=== PATIENT | male | born 1965 | race Two or more races ===

== ENCOUNTER 2023-03-20 21:04 | Inpatient (IN) | payer MEDICAID, OTHER ==
[~2023-03-20] VITALS: Ht 177.8 cm; Wt 86.2 kg
[2023-03-20] MEDS ORDERED: QUET200T PO (21:14)
[2023-03-20] MEDS ORDERED: BUPR-345 PO (21:14)
[2023-03-20] MEDS ORDERED: VENL-193 PO (21:14)
[2023-03-20 22:16] LABS: BASOPHILS % (AUTO) 0.7 % (0.0-2.0); EOSINOPHILS % (AUTO) 0.1 % (1.0-6.0); HEMATOCRIT 38.7 % (41-53); HEMOGLOBIN 12.8 g/dL (13.5-17.5); LYMPHOCYTES # (AUTO) 1.4 K/uL (1.0-4.8); LYMPHOCYTES % (AUTO) 13.4 % (22.0-44.0); MEAN CORPUSCULAR HEMOGLOBIN 29.1 pg (26.0-34.0); MEAN CORPUSCULAR HGB CONC 33.1 G/dL (31.0-37.0); MEAN CORPUSCULAR VOLUME 88 fL (80-100); MONOCYTES # (AUTO) 1.3 K/uL (0.1-1.0); MONOCYTES % (AUTO) 12.2 % (2.0-9.0); NEUTROPHILS # (AUTO) 7.8 K/uL (1.8-7.7); NEUTROPHILS % (AUTO) 73.6 % (40.0-70.0); PLATELET COUNT (AUTO) 290 K/uL (150-450); RED CELL DISTRIBUTION WIDTH 15.5 % (11.5-14.5)
[2023-03-20 22:27] LABS: ANION GAP 12 mmol/L (8-16); CALCIUM, TOTAL 9.3 mg/dL (8.8-10.5); CARBON DIOXIDE 25 mmol/L (22-29); CHLORIDE 105 mmol/L (98-107); GLOMERULAR FILTR. RATE CALC > 60 mL/min (>60); GLUCOSE,RANDOM 100 mg/dL (70-110); POTASSIUM 4.5 mmol/L (3.5-5.1); SODIUM SERUM 142 mmol/L (136-145)
[2023-03-20 22:32] LABS: ALANINE AMINOTRANSFERASE 80 U/L (12-78); ALBUMIN 4.4 g/dL (3.4-5.0); ALKALINE PHOSPHATASE 85 U/L (46-116); ASPARTATE AMINOTRANSFERASE 293 U/L (15-37); BILIRUBIN,TOTAL 0.9 mg/dL (0.1-1.0); TOTAL PROTEIN, SERUM 7.7 g/dL (6.4-8.2)
[2023-03-21] MEDS ORDERED: HALOPERIDOL LACTATE 5 MG/ML VIAL IM ONE (03:00)
[2023-03-21] MEDS ORDERED: DiphenhydrAMINE HCL 50 MG/ML VIAL IM ONE (03:00)
[2023-03-21] MEDS ORDERED: LORazepam 2 MG/ML VIAL IM ONE (03:00)
[2023-03-21] MEDS ORDERED: OLANZapine 5 MG RAPDIS TABLET PO PRN (03:45)
[2023-03-21 11:50] LABS: COVID AG,FIA SOURCE NASAL SWAB
[2023-03-21 15:05] VITALS: BP 132/74; PULSE 100; RESP 18; TEMP 98.6; O2SAT 97
[2023-03-21 20:17] VITALS: RESP 20
[2023-03-21] MEDS ORDERED: MAG HYDROX/AL HYDROX/SIMETH ES 30 ML SUSPENSION UDCUP PO PRN (21:15)
[2023-03-21] MEDS ORDERED: OLANZapine 5 MG RAPDIS TABLET PO ONE (21:15)
[2023-03-21] MEDS ORDERED: LOPERAMIDE HCL 2 MG CAPSULE PO PRN (21:15)
[2023-03-21] MEDS ORDERED: HydrOXYzine PAMOATE 50 MG CAPSULE PO PRN (21:15)
[2023-03-21] MEDS ORDERED: TUBERCULIN, PURIFIED PROTEIN DERIVATIVE 5 TU/0.1 ML SYRINGE ID ONE (21:15)
[2023-03-21] MEDS ORDERED: PROMETHAZINE HCL 25 MG TABLET PO PRN (21:15)
[2023-03-21] MEDS ORDERED: GuaiFENesin/D-METHORPHAN [SUGAR-FREE] 200-20MG/10 ML SYRUP UDCUP PO PRN (21:15)
[2023-03-21] MEDS ORDERED: MAGNESIUM HYDROXIDE SUSPENSION 30 ML UDCUP PO PRN (21:15)
[2023-03-22] MEDS: OMEGA-3/DHA/EPA/FISH OIL 1,000 MG CAPSULE PO SCH (08:06)
[2023-03-22] MEDS: DIVALPROEX SODIUM 500 MG ER TABLET PO SCH ×3 (08:06→17:19)
[2023-03-22] MEDS: MULTIVITAMINS WITH MINERALS, THERAPEUTIC TABLET PO SCH (08:06)
[2023-03-22] MEDS: FOLIC ACID 1 MG TABLET PO SCH (08:07)
[2023-03-22] MEDS: THIAMINE 100 MG TABLET PO SCH ×2 (08:07→17:19)
[2023-03-22] MEDS: NALTREXONE HCL 50 MG TABLET PO SCH (08:07)
[2023-03-22 08:22] LABS: HEMOGLOBIN A1C 5.3 % (3.8-5.6)
[2023-03-22 08:35] VITALS: BP 118/57; PULSE 97; RESP 17; TEMP 98; O2SAT 99
[2023-03-22 08:43] LABS: CHOL/HDL RATIO 4.2 (4.2-7.3); FREE T4 (FREE THYROXINE) 1.11 ng/dL (0.76-1.46); THYROID STIMULATING HORMONE 4.47 uIU/mL (0.36-3.74)
[2023-03-22] MEDS ORDERED: QUEtiapine FUMARATE 100 MG TABLET PO PRN (16:00)
[2023-03-22] MEDS: QUEtiapine FUMARATE 200 MG TABLET PO SCH (20:09)
[2023-03-22] MEDS: LORazepam 2 MG TABLET PO PRN (20:09)
[2023-03-22] MEDS: BuPROPion HCL XL 150 MG ER TABLET PO SCH (20:09)
[2023-03-22] MEDS: MELATONIN 5 MG TABLET PO SCH (20:09)
[2023-03-22 20:55] VITALS: BP 118/69; PULSE 95; TEMP 97.6; O2SAT 95
[2023-03-22] MEDS ORDERED: OLANZapine 5 MG RAPDIS TABLET PO SCH (21:00)
[2023-03-23 08:06] LABS: HEPATITIS C AB (EIA) Non Reactive (Non Reactive)
[2023-03-23] MEDS: FOLIC ACID 1 MG TABLET PO SCH (08:06)
[2023-03-23] MEDS: THIAMINE 100 MG TABLET PO SCH ×2 (08:06→17:25)
[2023-03-23] MEDS: OMEGA-3/DHA/EPA/FISH OIL 1,000 MG CAPSULE PO SCH (08:07)
[2023-03-23] MEDS: NALTREXONE HCL 50 MG TABLET PO SCH (08:07)
[2023-03-23] MEDS: MULTIVITAMINS WITH MINERALS, THERAPEUTIC TABLET PO SCH (08:07)
[2023-03-23] MEDS: DIVALPROEX SODIUM 500 MG ER TABLET PO SCH ×3 (08:07→17:25)
[2023-03-23] MEDS: VENLAFAXINE HCL 150 MG ER CAPSULE PO SCH (08:07)
[2023-03-23 08:25] VITALS: BP 119/71; PULSE 101; RESP 17; TEMP 98.4; O2SAT 97
[2023-03-23] MEDS: LORazepam 2 MG TABLET PO PRN (19:21)
[2023-03-23] MEDS: QUEtiapine FUMARATE 200 MG TABLET PO SCH (20:16)
[2023-03-23] MEDS: BuPROPion HCL XL 150 MG ER TABLET PO SCH (20:16)
[2023-03-23] MEDS: MELATONIN 5 MG TABLET PO SCH (20:16)
[2023-03-23 20:44] VITALS: BP 120/68; PULSE 98; RESP 18; TEMP 98.2; O2SAT 97
[2023-03-24] MEDS: FOLIC ACID 1 MG TABLET PO SCH (08:00)
[2023-03-24] MEDS: DIVALPROEX SODIUM 500 MG ER TABLET PO SCH ×3 (08:00→17:19)
[2023-03-24] MEDS: MULTIVITAMINS WITH MINERALS, THERAPEUTIC TABLET PO SCH (08:00)
[2023-03-24] MEDS: OMEGA-3/DHA/EPA/FISH OIL 1,000 MG CAPSULE PO SCH (08:00)
[2023-03-24] MEDS: NALTREXONE HCL 50 MG TABLET PO SCH (08:01)
[2023-03-24] MEDS: THIAMINE 100 MG TABLET PO SCH ×2 (08:01→17:19)
[2023-03-24] MEDS: VENLAFAXINE HCL 150 MG ER CAPSULE PO SCH (08:01)
[2023-03-24 08:39] VITALS: BP 100/59; PULSE 89; RESP 17; TEMP 98; O2SAT 94
[2023-03-24] MEDS ORDERED: BUPR-317 PO (14:06)
[2023-03-24] MEDS ORDERED: VENL-68 PO (14:06)
[2023-03-24] MEDS: LORazepam 2 MG TABLET PO PRN ×2 (17:19→21:34)
[2023-03-24 20:44] VITALS: BP 109/74; PULSE 97; RESP 18; TEMP 98.2; O2SAT 97
[2023-03-24] MEDS: MELATONIN 5 MG TABLET PO SCH (21:00)
[2023-03-24] MEDS: QUEtiapine FUMARATE 300 MG TABLET PO SCH (21:01)
[2023-03-24] MEDS: ZOLPIDEM TARTRATE 10 MG TABLET PO PRN (21:01)
[2023-03-24] MEDS: BuPROPion HCL XL 150 MG ER TABLET PO SCH (21:01)
[2023-03-25 07:07] LABS: HEPATITIS C AB (EIA) Non Reactive (Non Reactive)
[2023-03-25 08:15] VITALS: BP 88/55; PULSE 78; RESP 18; TEMP 98.3; O2SAT 95
[2023-03-25] MEDS: MULTIVITAMINS WITH MINERALS, THERAPEUTIC TABLET PO SCH (08:38)
[2023-03-25] MEDS: NALTREXONE HCL 50 MG TABLET PO SCH (08:38)
[2023-03-25] MEDS: THIAMINE 100 MG TABLET PO SCH ×2 (08:38→16:02)
[2023-03-25] MEDS: VENLAFAXINE HCL 150 MG ER CAPSULE PO SCH (08:38)
[2023-03-25] MEDS: FOLIC ACID 1 MG TABLET PO SCH (08:38)
[2023-03-25] MEDS: DIVALPROEX SODIUM 500 MG ER TABLET PO SCH ×3 (08:38→16:02)
[2023-03-25] MEDS: OMEGA-3/DHA/EPA/FISH OIL 1,000 MG CAPSULE PO SCH (08:39)
[2023-03-25] MEDS: LACTULOSE 20 GM/30 ML SOLUTION UDCUP PO SCH ×2 (08:49→16:02)
[2023-03-25] MEDS: BuPROPion HCL XL 150 MG ER TABLET PO SCH (20:04)
[2023-03-25] MEDS: QUEtiapine FUMARATE 300 MG TABLET PO SCH (20:05)
[2023-03-25] MEDS: MELATONIN 5 MG TABLET PO SCH (20:06)
[2023-03-25 20:26] VITALS: BP 132/83; PULSE 97; RESP 17; TEMP 97.8; O2SAT 97
[2023-03-26] MEDS: DIVALPROEX SODIUM 500 MG ER TABLET PO SCH ×3 (08:13→16:10)
[2023-03-26] MEDS: THIAMINE 100 MG TABLET PO SCH ×2 (08:13→16:10)
[2023-03-26] MEDS: FOLIC ACID 1 MG TABLET PO SCH (08:13)
[2023-03-26] MEDS: NALTREXONE HCL 50 MG TABLET PO SCH (08:13)
[2023-03-26] MEDS: OMEGA-3/DHA/EPA/FISH OIL 1,000 MG CAPSULE PO SCH (08:13)
[2023-03-26] MEDS: VENLAFAXINE HCL 150 MG ER CAPSULE PO SCH (08:13)
[2023-03-26 08:14] VITALS: BP 111/71; PULSE 87; RESP 16; TEMP 98.6; O2SAT 98
[2023-03-26] MEDS: MULTIVITAMINS WITH MINERALS, THERAPEUTIC TABLET PO SCH (08:14)
[2023-03-26] MEDS: LACTULOSE 20 GM/30 ML SOLUTION UDCUP PO SCH ×2 (08:14→16:10)
[2023-03-26 11:43] VITALS: RESP 18
[2023-03-26] MEDS: ACETAMINOPHEN 325 MG TABLET PO PRN (11:43)
[2023-03-26 12:43] VITALS: RESP 18
[2023-03-26] MEDS: BuPROPion HCL XL 150 MG ER TABLET PO SCH (20:08)
[2023-03-26] MEDS: MELATONIN 5 MG TABLET PO SCH (20:08)
[2023-03-26] MEDS: QUEtiapine FUMARATE 300 MG TABLET PO SCH (20:08)
[2023-03-26 21:24] VITALS: BP 126/76; PULSE 86; RESP 18; TEMP 97.9
[2023-03-27] MEDS: NALTREXONE HCL 50 MG TABLET PO SCH (08:02)
[2023-03-27] MEDS: MULTIVITAMINS WITH MINERALS, THERAPEUTIC TABLET PO SCH (08:02)
[2023-03-27] MEDS: DIVALPROEX SODIUM 500 MG ER TABLET PO SCH ×3 (08:02→16:11)
[2023-03-27] MEDS: FOLIC ACID 1 MG TABLET PO SCH (08:02)
[2023-03-27] MEDS: OMEGA-3/DHA/EPA/FISH OIL 1,000 MG CAPSULE PO SCH (08:03)
[2023-03-27] MEDS: VENLAFAXINE HCL 150 MG ER CAPSULE PO SCH (08:03)
[2023-03-27] MEDS: THIAMINE 100 MG TABLET PO SCH ×2 (08:03→16:11)
[2023-03-27] MEDS: LACTULOSE 20 GM/30 ML SOLUTION UDCUP PO SCH ×2 (08:04→16:11)
[2023-03-27 08:19] VITALS: BP 113/77; PULSE 90; RESP 17; TEMP 98.2; O2SAT 94
[2023-03-27] MEDS: BuPROPion HCL XL 150 MG ER TABLET PO SCH (20:06)
[2023-03-27] MEDS: MELATONIN 5 MG TABLET PO SCH (20:06)
[2023-03-27] MEDS: QUEtiapine FUMARATE 200 MG TABLET PO SCH (20:07)
[2023-03-27 20:10] VITALS: BP 113/80; PULSE 100; RESP 18; TEMP 97.6; O2SAT 97
[2023-03-28] MEDS: OMEGA-3/DHA/EPA/FISH OIL 1,000 MG CAPSULE PO SCH (08:01)
[2023-03-28] MEDS: NALTREXONE HCL 50 MG TABLET PO SCH (08:01)
[2023-03-28] MEDS: VENLAFAXINE HCL 150 MG ER CAPSULE PO SCH (08:01)
[2023-03-28] MEDS: FOLIC ACID 1 MG TABLET PO SCH (08:01)
[2023-03-28] MEDS: THIAMINE 100 MG TABLET PO SCH ×2 (08:01→16:03)
[2023-03-28] MEDS: DIVALPROEX SODIUM 500 MG ER TABLET PO SCH ×3 (08:01→16:03)
[2023-03-28] MEDS: MULTIVITAMINS WITH MINERALS, THERAPEUTIC TABLET PO SCH (08:01)
[2023-03-28] MEDS: LACTULOSE 20 GM/30 ML SOLUTION UDCUP PO SCH ×2 (08:02→16:03)
[2023-03-28 08:26] VITALS: BP 100/60; PULSE 85; RESP 17; TEMP 98.2; O2SAT 97
[2023-03-28] MEDS: QUEtiapine FUMARATE 200 MG TABLET PO SCH (20:02)
[2023-03-28] MEDS: BuPROPion HCL XL 150 MG ER TABLET PO SCH (20:02)
[2023-03-28] MEDS: MELATONIN 5 MG TABLET PO SCH (20:04)
[2023-03-28 20:10] VITALS: BP 121/77; PULSE 87; RESP 20; TEMP 98.2; O2SAT 100
[2023-03-29] MEDS: DIVALPROEX SODIUM 500 MG ER TABLET PO SCH ×3 (08:03→18:06)
[2023-03-29] MEDS: LACTULOSE 20 GM/30 ML SOLUTION UDCUP PO SCH ×2 (08:03→18:06)
[2023-03-29] MEDS: OMEGA-3/DHA/EPA/FISH OIL 1,000 MG CAPSULE PO SCH (08:03)
[2023-03-29] MEDS: FOLIC ACID 1 MG TABLET PO SCH (08:04)
[2023-03-29] MEDS: MULTIVITAMINS WITH MINERALS, THERAPEUTIC TABLET PO SCH (08:04)
[2023-03-29] MEDS: NALTREXONE HCL 50 MG TABLET PO SCH (08:04)
[2023-03-29] MEDS: THIAMINE 100 MG TABLET PO SCH ×2 (08:04→18:06)
[2023-03-29] MEDS: VENLAFAXINE HCL 150 MG ER CAPSULE PO SCH (08:06)
[2023-03-29 08:09] VITALS: BP 108/72; PULSE 75; RESP 17; TEMP 98.4; O2SAT 96
[2023-03-29] MEDS: LORazepam 2 MG TABLET PO PRN (18:07)
[2023-03-29 20:09] VITALS: BP 117/64; PULSE 84; RESP 18; TEMP 98.2; O2SAT 98
[2023-03-29] MEDS: QUEtiapine FUMARATE 200 MG TABLET PO SCH (20:12)
[2023-03-29] MEDS: MELATONIN 5 MG TABLET PO SCH (20:12)
[2023-03-29] MEDS: ZOLPIDEM TARTRATE 10 MG TABLET PO PRN (20:13)
[2023-03-29] MEDS: BuPROPion HCL XL 150 MG ER TABLET PO SCH (20:13)
[2023-03-30] MEDS: FOLIC ACID 1 MG TABLET PO SCH (08:05)
[2023-03-30] MEDS: OMEGA-3/DHA/EPA/FISH OIL 1,000 MG CAPSULE PO SCH (08:05)
[2023-03-30] MEDS: LACTULOSE 20 GM/30 ML SOLUTION UDCUP PO SCH ×2 (08:06→17:07)
[2023-03-30] MEDS: VENLAFAXINE HCL 150 MG ER CAPSULE PO SCH (08:06)
[2023-03-30] MEDS: MULTIVITAMINS WITH MINERALS, THERAPEUTIC TABLET PO SCH (08:06)
[2023-03-30] MEDS: THIAMINE 100 MG TABLET PO SCH ×2 (08:06→17:07)
[2023-03-30] MEDS: NALTREXONE HCL 50 MG TABLET PO SCH (08:06)
[2023-03-30] MEDS: DIVALPROEX SODIUM 500 MG ER TABLET PO SCH ×3 (08:06→17:07)
[2023-03-30 08:13] VITALS: BP 123/72; PULSE 73; RESP 17; TEMP 98.5; O2SAT 97
[2023-03-30] MEDS: BuPROPion HCL XL 150 MG ER TABLET PO SCH (20:12)
[2023-03-30] MEDS: MELATONIN 5 MG TABLET PO SCH (20:12)
[2023-03-30] MEDS: QUEtiapine FUMARATE 200 MG TABLET PO SCH (20:12)
[2023-03-30] MEDS: ZOLPIDEM TARTRATE 10 MG TABLET PO PRN (20:12)
[2023-03-30 20:22] VITALS: BP 104/67; PULSE 88; RESP 18; TEMP 98.3; O2SAT 97
[2023-03-31 08:11] VITALS: BP 104/69; PULSE 93; RESP 17; TEMP 98.2; O2SAT 95
[2023-03-31] MEDS: NALTREXONE HCL 50 MG TABLET PO SCH (08:23)
[2023-03-31] MEDS: VENLAFAXINE HCL 150 MG ER CAPSULE PO SCH (08:23)
[2023-03-31] MEDS: THIAMINE 100 MG TABLET PO SCH ×2 (08:23→17:02)
[2023-03-31] MEDS: DIVALPROEX SODIUM 500 MG ER TABLET PO SCH ×3 (08:23→17:02)
[2023-03-31] MEDS: MULTIVITAMINS WITH MINERALS, THERAPEUTIC TABLET PO SCH (08:23)
[2023-03-31] MEDS: FOLIC ACID 1 MG TABLET PO SCH (08:23)
[2023-03-31] MEDS: LACTULOSE 20 GM/30 ML SOLUTION UDCUP PO SCH ×2 (08:24→17:02)
[2023-03-31] MEDS: OMEGA-3/DHA/EPA/FISH OIL 1,000 MG CAPSULE PO SCH (09:02)
[2023-03-31] MEDS: LORazepam 2 MG TABLET PO PRN (17:05)
[2023-03-31] MEDS: MELATONIN 5 MG TABLET PO SCH ×2 (19:27→20:03)
[2023-03-31] MEDS: BuPROPion HCL XL 150 MG ER TABLET PO SCH ×2 (19:27→20:03)
[2023-03-31] MEDS: QUEtiapine FUMARATE 200 MG TABLET PO SCH ×2 (19:27→20:03)
[2023-03-31 20:25] VITALS: BP 119/78; PULSE 63; RESP 18; TEMP 98.5; O2SAT 97
[2023-03-31] MEDS: ZOLPIDEM TARTRATE 10 MG TABLET PO PRN (20:59)
[2023-04-01] MEDS: DIVALPROEX SODIUM 500 MG ER TABLET PO SCH ×3 (08:05→17:30)
[2023-04-01] MEDS: VENLAFAXINE HCL 150 MG ER CAPSULE PO SCH (08:05)
[2023-04-01] MEDS: NALTREXONE HCL 50 MG TABLET PO SCH (08:05)
[2023-04-01] MEDS: MULTIVITAMINS WITH MINERALS, THERAPEUTIC TABLET PO SCH (08:05)
[2023-04-01] MEDS: OMEGA-3/DHA/EPA/FISH OIL 1,000 MG CAPSULE PO SCH (08:06)
[2023-04-01] MEDS: LACTULOSE 20 GM/30 ML SOLUTION UDCUP PO SCH ×2 (08:06→17:31)
[2023-04-01 08:21] VITALS: BP 121/91; PULSE 87; RESP 17; TEMP 98.6; O2SAT 95
[2023-04-01] MEDS: LORazepam 2 MG TABLET PO PRN (17:30)
[2023-04-01 20:08] VITALS: BP 108/70; PULSE 90; RESP 18; TEMP 98.2; O2SAT 96
[2023-04-01] MEDS: QUEtiapine FUMARATE 200 MG TABLET PO SCH (20:26)
[2023-04-01] MEDS: BuPROPion HCL XL 150 MG ER TABLET PO SCH (20:26)
[2023-04-01] MEDS: MELATONIN 5 MG TABLET PO SCH (20:27)
[2023-04-01] MEDS: ZOLPIDEM TARTRATE 10 MG TABLET PO PRN (20:27)
[2023-04-02] MEDS: DIVALPROEX SODIUM 500 MG ER TABLET PO SCH ×3 (08:53→17:30)
[2023-04-02] MEDS: VENLAFAXINE HCL 150 MG ER CAPSULE PO SCH (08:54)
[2023-04-02] MEDS: MULTIVITAMINS WITH MINERALS, THERAPEUTIC TABLET PO SCH (08:54)
[2023-04-02] MEDS: OMEGA-3/DHA/EPA/FISH OIL 1,000 MG CAPSULE PO SCH (08:54)
[2023-04-02] MEDS: NALTREXONE HCL 50 MG TABLET PO SCH (08:54)
[2023-04-02] MEDS: LACTULOSE 20 GM/30 ML SOLUTION UDCUP PO SCH ×2 (08:55→17:29)
[2023-04-02 08:56] VITALS: RESP 18
[2023-04-02] MEDS: ACETAMINOPHEN 325 MG TABLET PO PRN (08:56)
[2023-04-02] MEDS: LORazepam 2 MG TABLET PO PRN (08:56)
[2023-04-02 09:56] VITALS: RESP 18
[2023-04-02 11:38] VITALS: BP 124/72; PULSE 79; RESP 18; TEMP 97.6
[2023-04-02] MEDS: MELATONIN 5 MG TABLET PO SCH (20:16)
[2023-04-02] MEDS: BuPROPion HCL XL 150 MG ER TABLET PO SCH (20:16)
[2023-04-02] MEDS: ZOLPIDEM TARTRATE 10 MG TABLET PO PRN (20:16)
[2023-04-02] MEDS: QUEtiapine FUMARATE 200 MG TABLET PO SCH (20:16)
[2023-04-02 23:30] VITALS: RESP 18
[2023-04-03 08:13] VITALS: BP 100/65; PULSE 96; RESP 17; TEMP 97.9; O2SAT 99
[2023-04-03] MEDS: MULTIVITAMINS WITH MINERALS, THERAPEUTIC TABLET PO SCH (08:13)
[2023-04-03] MEDS: NALTREXONE HCL 50 MG TABLET PO SCH (08:13)
[2023-04-03] MEDS: DIVALPROEX SODIUM 500 MG ER TABLET PO SCH ×3 (08:14→17:34)
[2023-04-03] MEDS: LACTULOSE 20 GM/30 ML SOLUTION UDCUP PO SCH ×2 (08:14→17:34)
[2023-04-03] MEDS: OMEGA-3/DHA/EPA/FISH OIL 1,000 MG CAPSULE PO SCH (08:14)
[2023-04-03] MEDS: VENLAFAXINE HCL 150 MG ER CAPSULE PO SCH (08:14)
[2023-04-03] MEDS: QUEtiapine FUMARATE 200 MG TABLET PO SCH (20:08)
[2023-04-03] MEDS: MELATONIN 5 MG TABLET PO SCH (20:08)
[2023-04-03] MEDS: ZOLPIDEM TARTRATE 10 MG TABLET PO PRN (20:09)
[2023-04-03] MEDS: BuPROPion HCL XL 150 MG ER TABLET PO SCH (20:09)
[2023-04-03 20:25] VITALS: BP 110/68; PULSE 80; RESP 19; TEMP 98; O2SAT 97
[2023-04-04 07:55] VITALS: RESP 18
[2023-04-04] MEDS: ACETAMINOPHEN 325 MG TABLET PO PRN ×2 (07:55→13:10)
[2023-04-04] MEDS: MULTIVITAMINS WITH MINERALS, THERAPEUTIC TABLET PO SCH (08:02)
[2023-04-04] MEDS: NALTREXONE HCL 50 MG TABLET PO SCH (08:02)
[2023-04-04] MEDS: OMEGA-3/DHA/EPA/FISH OIL 1,000 MG CAPSULE PO SCH (08:02)
[2023-04-04] MEDS: DIVALPROEX SODIUM 500 MG ER TABLET PO SCH ×3 (08:02→16:35)
[2023-04-04] MEDS: VENLAFAXINE HCL 150 MG ER CAPSULE PO SCH (08:03)
[2023-04-04] MEDS: LACTULOSE 20 GM/30 ML SOLUTION UDCUP PO SCH ×2 (08:03→16:34)
[2023-04-04 08:11] VITALS: BP 126/62; PULSE 96; RESP 18; TEMP 97.7; O2SAT 100
[2023-04-04 08:55] VITALS: RESP 18
[2023-04-04 13:10] VITALS: RESP 18
[2023-04-04 14:10] VITALS: RESP 18
[2023-04-04] MEDS: MELATONIN 5 MG TABLET PO SCH (20:11)
[2023-04-04] MEDS: QUEtiapine FUMARATE 200 MG TABLET PO SCH (20:11)
[2023-04-04] MEDS: BuPROPion HCL XL 150 MG ER TABLET PO SCH (20:12)
[2023-04-04] MEDS: ZOLPIDEM TARTRATE 10 MG TABLET PO PRN (20:12)
[2023-04-04 20:15] VITALS: BP 110/74; PULSE 85; RESP 19; TEMP 98; O2SAT 95
[2023-04-05] MEDS: OMEGA-3/DHA/EPA/FISH OIL 1,000 MG CAPSULE PO SCH (08:15)
[2023-04-05] MEDS: DIVALPROEX SODIUM 500 MG ER TABLET PO SCH ×3 (08:15→17:12)
[2023-04-05] MEDS: MULTIVITAMINS WITH MINERALS, THERAPEUTIC TABLET PO SCH (08:15)
[2023-04-05] MEDS: NALTREXONE HCL 50 MG TABLET PO SCH (08:15)
[2023-04-05] MEDS: VENLAFAXINE HCL 150 MG ER CAPSULE PO SCH (08:15)
[2023-04-05 08:24] VITALS: BP 131/73; PULSE 91; RESP 18; TEMP 98.4; O2SAT 97
[2023-04-05] MEDS: LACTULOSE 20 GM/30 ML SOLUTION UDCUP PO SCH ×2 (09:00→17:12)
[2023-04-05] MEDS: BuPROPion HCL XL 150 MG ER TABLET PO SCH (20:33)
[2023-04-05] MEDS: QUEtiapine FUMARATE 200 MG TABLET PO SCH (20:33)
[2023-04-05] MEDS: MELATONIN 5 MG TABLET PO SCH (20:33)
[2023-04-05 21:18] VITALS: BP 128/76; PULSE 85; RESP 18; TEMP 98.3; O2SAT 98
[2023-04-06] MEDS: VENLAFAXINE HCL 150 MG ER CAPSULE PO SCH (08:19)
[2023-04-06] MEDS: NALTREXONE HCL 50 MG TABLET PO SCH (08:19)
[2023-04-06] MEDS: OMEGA-3/DHA/EPA/FISH OIL 1,000 MG CAPSULE PO SCH (08:19)
[2023-04-06] MEDS: MULTIVITAMINS WITH MINERALS, THERAPEUTIC TABLET PO SCH (08:19)
[2023-04-06] MEDS: DIVALPROEX SODIUM 500 MG ER TABLET PO SCH ×3 (08:19→17:12)
[2023-04-06] MEDS: LACTULOSE 20 GM/30 ML SOLUTION UDCUP PO SCH ×2 (08:20→17:12)
[2023-04-06 08:38] VITALS: BP 115/85; PULSE 92; RESP 17; TEMP 98.1; O2SAT 98
[2023-04-06] MEDS: BuPROPion HCL XL 150 MG ER TABLET PO SCH (20:13)
[2023-04-06] MEDS: MELATONIN 5 MG TABLET PO SCH (20:14)
[2023-04-06] MEDS: QUEtiapine FUMARATE 200 MG TABLET PO SCH (20:14)
[2023-04-06 20:22] VITALS: BP 120/77; PULSE 96; RESP 18; TEMP 98.1; O2SAT 97
[2023-04-07] MEDS: NALTREXONE HCL 50 MG TABLET PO SCH (08:32)
[2023-04-07] MEDS: OMEGA-3/DHA/EPA/FISH OIL 1,000 MG CAPSULE PO SCH (08:32)
[2023-04-07] MEDS: VENLAFAXINE HCL 150 MG ER CAPSULE PO SCH (08:33)
[2023-04-07] MEDS: LACTULOSE 20 GM/30 ML SOLUTION UDCUP PO SCH ×2 (08:33→17:11)
[2023-04-07] MEDS: DIVALPROEX SODIUM 500 MG ER TABLET PO SCH ×3 (08:33→17:11)
[2023-04-07] MEDS: MULTIVITAMINS WITH MINERALS, THERAPEUTIC TABLET PO SCH (08:34)
[2023-04-07 08:43] VITALS: BP 121/73; PULSE 100; RESP 18; TEMP 97.5; O2SAT 98
[2023-04-07] MEDS ORDERED: GABAPENTIN 400 MG CAPSULE PO PRN (12:15)
[2023-04-07 20:26] VITALS: BP 106/79; PULSE 92; RESP 20; TEMP 98.2; O2SAT 99
[2023-04-07] MEDS: MELATONIN 5 MG TABLET PO SCH (20:53)
[2023-04-07] MEDS: QUEtiapine FUMARATE 200 MG TABLET PO SCH (20:53)
[2023-04-07] MEDS: BuPROPion HCL XL 150 MG ER TABLET PO SCH (20:53)
[2023-04-08 08:39] VITALS: BP 120/61; PULSE 81; RESP 20; TEMP 97.8; O2SAT 99
[2023-04-08] MEDS: MULTIVITAMINS WITH MINERALS, THERAPEUTIC TABLET PO SCH (09:15)
[2023-04-08] MEDS: VENLAFAXINE HCL 150 MG ER CAPSULE PO SCH (09:15)
[2023-04-08] MEDS: DIVALPROEX SODIUM 500 MG ER TABLET PO SCH ×3 (09:15→16:51)
[2023-04-08] MEDS: LACTULOSE 20 GM/30 ML SOLUTION UDCUP PO SCH (09:16)
[2023-04-08] MEDS: NALTREXONE HCL 50 MG TABLET PO SCH (09:16)
[2023-04-08] MEDS: OMEGA-3/DHA/EPA/FISH OIL 1,000 MG CAPSULE PO SCH (09:16)
[2023-04-08 12:26] VITALS: RESP 18
[2023-04-08] MEDS: ACETAMINOPHEN 325 MG TABLET PO PRN (12:26)
[2023-04-08] MEDS: QUEtiapine FUMARATE 200 MG TABLET PO SCH (20:17)
[2023-04-08] MEDS: MELATONIN 5 MG TABLET PO SCH (20:17)
[2023-04-08] MEDS: BuPROPion HCL XL 150 MG ER TABLET PO SCH (20:17)
[2023-04-08 20:34] VITALS: BP 121/64; PULSE 93; RESP 18; TEMP 98.2; O2SAT 95
[2023-04-09] MEDS: VENLAFAXINE HCL 150 MG ER CAPSULE PO SCH (08:19)
[2023-04-09] MEDS: DIVALPROEX SODIUM 500 MG ER TABLET PO SCH ×3 (08:19→17:27)
[2023-04-09] MEDS: NALTREXONE HCL 50 MG TABLET PO SCH (08:20)
[2023-04-09] MEDS: OMEGA-3/DHA/EPA/FISH OIL 1,000 MG CAPSULE PO SCH (08:20)
[2023-04-09] MEDS: MULTIVITAMINS WITH MINERALS, THERAPEUTIC TABLET PO SCH (08:20)
[2023-04-09] MEDS: ACETAMINOPHEN 325 MG TABLET PO PRN (08:55)
[2023-04-09 15:04] VITALS: BP 101/70; PULSE 89; RESP 16; TEMP 98.2; O2SAT 99
[2023-04-09 20:18] VITALS: BP 128/85; PULSE 100; RESP 19; TEMP 97.8; O2SAT 95
[2023-04-09] MEDS: QUEtiapine FUMARATE 200 MG TABLET PO SCH (20:55)
[2023-04-09] MEDS: BuPROPion HCL XL 150 MG ER TABLET PO SCH (20:55)
[2023-04-09] MEDS: MELATONIN 5 MG TABLET PO SCH (20:55)
[2023-04-10] MEDS: DIVALPROEX SODIUM 500 MG ER TABLET PO SCH ×3 (08:12→17:19)
[2023-04-10] MEDS: NALTREXONE HCL 50 MG TABLET PO SCH (08:12)
[2023-04-10] MEDS: MULTIVITAMINS WITH MINERALS, THERAPEUTIC TABLET PO SCH (08:12)
[2023-04-10] MEDS: VENLAFAXINE HCL 150 MG ER CAPSULE PO SCH (08:13)
[2023-04-10] MEDS: OMEGA-3/DHA/EPA/FISH OIL 1,000 MG CAPSULE PO SCH (08:13)
[2023-04-10 08:24] VITALS: BP 106/77; PULSE 96; RESP 17; TEMP 97.2; O2SAT 99
[2023-04-10] MEDS ORDERED: OMEG-135 PO (14:13)
[2023-04-10] MEDS ORDERED: NALT50TA PO (14:13)
[2023-04-10] MEDS ORDERED: QUET200T30 PO (14:13)
[2023-04-10] MEDS ORDERED: BUPR-49 PO (14:13)
[2023-04-10] MEDS ORDERED: VENL150C4 PO (14:13)
[2023-04-10] MEDS ORDERED: DIVA500T69 PO (14:13)
[2023-04-10] MEDS ORDERED: MELA5TAB40 PO (14:13)
[2023-04-10 20:22] VITALS: BP 109/72; PULSE 97; RESP 18; TEMP 98.4; O2SAT 96
[2023-04-10] MEDS: MELATONIN 5 MG TABLET PO SCH (20:24)
[2023-04-10] MEDS: QUEtiapine FUMARATE 200 MG TABLET PO SCH (20:24)
[2023-04-10] MEDS: BuPROPion HCL XL 150 MG ER TABLET PO SCH (20:25)
[2023-04-11] MEDS: VENLAFAXINE HCL 150 MG ER CAPSULE PO SCH (08:14)
[2023-04-11] MEDS: DIVALPROEX SODIUM 500 MG ER TABLET PO SCH ×2 (08:14→12:52)
[2023-04-11] MEDS: NALTREXONE HCL 50 MG TABLET PO SCH (08:14)
[2023-04-11] MEDS: OMEGA-3/DHA/EPA/FISH OIL 1,000 MG CAPSULE PO SCH (08:14)
[2023-04-11] MEDS: MULTIVITAMINS WITH MINERALS, THERAPEUTIC TABLET PO SCH (08:14)
[2023-04-11 08:39] VITALS: BP 117/70; PULSE 100; RESP 17; TEMP 98.5; O2SAT 95
[2023-04-11] MEDS ORDERED: NALT50TA PO (15:47)
[2023-04-11] MEDS ORDERED: MELA5TAB40 PO (15:47)
[2023-04-11] MEDS ORDERED: DIVA500T69 PO (15:47)
[2023-04-11] MEDS ORDERED: BUPR-49 PO (15:47)
[2023-04-11] MEDS ORDERED: OMEG-135 PO (15:47)
[2023-04-11] MEDS ORDERED: VENL150C4 PO (15:47)
[2023-04-11] MEDS ORDERED: QUET200T30 PO (15:47)
== END 2023-04-11 12:15 | disposition home or self-care (01) | DRG 750 ==
LOC: EMS 21:05 → B3A 03-21 13:06
PROVIDERS: ADMIT Psychiatry & Neurology Psychiatry; ATTEND Psychiatry & Neurology Psychiatry
DX: F25.9 Schizoaffective disorder, unspecified (principal); R45.851 Suicidal ideations; F60.0 Paranoid personality disorder; F17.200 Nicotine dependence, unspecified, uncomplicated; Z20.822 Contact with and (suspected) exposure to COVID-19; F15.20 Other stimulant dependence, uncomplicated; F90.9 Attention-deficit hyperactivity disorder, unspecified type; F32.A Depression, unspecified; Z79.899 Other long term (current) drug therapy; Z91.199 Patient's noncompliance with other medical treatment and regimen due to unspecified reason
CPT/HCPCS: 80053; 80061; 80074; 80164; 82140; 83036; 84439; 84443; 85025; 86592; 86803; 87340; G0480; J1200; J1630; J2060; Q9967